=== PATIENT | male | born 1975 | race Caucasian/White ===

== ENCOUNTER 2019-10-24 18:57 | Emergency (ER) | payer OTHER, SELFPAY ==
[2019-10-24] VITALS (17 sets, daily range): BP systolic 134–146; BP diastolic 71–80; PULSE 77–89; RESP 16; TEMP 37.1; O2SAT 94–100; BMI 32.8
--- NOTE | 2019-10-24 19:07 | DI.RAD.S_ITS ---
PROCEDURE: XR KNEE LT 1TO2V INDICATIONS: trauma/pain TECHNIQUE: 2 views of the knee were acquired. COMPARISON: [facility], CR, XR TIBIA FIBULA LT 2V, 10/24/2019, 19:09. FINDINGS: Limited digital on unconventional views. Bones: No fractures or dislocations. No suspicious bony lesions. Soft tissues: No joint effusion. No suspicious soft tissue calcifications. IMPRESSION: Nonstandard views were obtained. No definitive fracture or dislocation. If clinical symptoms persist or clinical suspicion for pathology is high, a repeat examination is suggested for further evaluation when clinically feasible. Dictated by: Evita Matthew M.D. on 10/24/2019 at 20:22 Approved by: Evita Matthew M.D. on 10/24/2019 at 20:24
--- NOTE | 2019-10-24 19:07 | DI.RAD.S_ITS ---
PROCEDURE: XR TIBIA FIBULA RT 2V INDICATIONS: trauma/pain TECHNIQUE: 2 views of the tibia and fibula were acquired. COMPARISON: [facility], CR, XR ANKLE LT 2V, 10/24/2019, 19:09. FINDINGS: Bones: Comminuted butterfly fracture in distal tibia metaphysis with minimal displacement. In addition, there is a distal fibular fracture involving the ankle mortise with minimal displacement. Mild widening of the medial ankle joint space. No suspicious bony lesions. Soft tissues: No suspicious soft tissue calcifications or masses. IMPRESSION: 1. Comminuted distal tibial fracture with minimal displacement. 2. Distal fibular fracture with intra-articular involvement and minimal displacement. Dictated by: Evita Matthew M.D. on 10/24/2019 at 20:24 Approved by: Evita Matthew M.D. on 10/24/2019 at 20:26
--- NOTE | 2019-10-24 19:07 | DI.RAD.S_ITS ---
PROCEDURE: XR FEMUR LT MIN 2V INDICATIONS: trauma/pain TECHNIQUE: 2 views of the femur were acquired. COMPARISON: None. FINDINGS: Bones: No fractures or dislocations. No suspicious bony lesions. Soft tissues: No suspicious soft tissue calcifications or masses. IMPRESSION: No fracture or dislocation. Dictated by: Evita Matthew M.D. on 10/24/2019 at 20:32 Approved by: Evita Matthew M.D. on 10/24/2019 at 20:32
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
--- NOTE | 2019-10-24 19:15 | DI.RAD.S_ITS ---
PROCEDURE: XR ANKLE LT 2V INDICATIONS: pain/trauma TECHNIQUE: 2 views of the ankle were acquired. COMPARISON: None. FINDINGS: Bones: There is a comminuted butterfly fracture distal tibial metadiaphysis, possibly involving the distal tibial fibular syndesmosis. There is minimal displacement. A intra-articular fracture is seen the distal fibula with minimal displacement. Ankle mortise is widened medially. No suspicious bony lesions. Soft tissues: No tibiotalar joint effusion. Achilles tendon appears normal. IMPRESSION: Distal tibial and fibular fractures. There is widening of ankle mortise medially. Dictated by: Evita Matthew M.D. on 10/24/2019 at 20:26 Approved by: Evita Matthew M.D. on 10/24/2019 at 20:28
[2019-10-24 19:24] LABS: Add Manual Diff / Slide Review NO; Basophils Absolute Auto 0 /uL (0-100); Basophils Percent Auto 0.4 % (0-2); Eosinophils Absolute Auto 100 /uL (0-450); Eosinophils Percent Auto 0.9 % (2-4); Hematocrit 40.3 % (41-53); Hemoglobin 14.2 g/dL (13.5-17.5); Lymphocytes Absolute Auto 1400 /uL (1100-4500); Lymphocytes Percent Auto 19.3 % (25-40); Mean Corpuscular HGB Conc 35.4 % (30-36); Mean Corpuscular Hemoglobin 31.8 PG (26-34); Mean Corpuscular Volume 89.7 fL (80-100); Monocytes Absolute Auto 500 /uL (0-900); Neutrophils Absolute Auto 5200 /uL (1500-7000); Neutrophils Percent Auto 72.4 % (50-75); Platelet Count 229 X10^3/uL (150-400); Red Blood Cell Count 4.49 X10^6/uL (4.5-5.9); Red Cell Distribution Width 12.1 % (11.6-14.8); White Blood Cell Count 7.1 X10^3/uL (4.5-11.0)
[2019-10-24 19:38] LABS: Alanine Aminotransferase 47 IU/L (<50); Albumin 4.4 g/dL (3.5-5.0); Albumin Globulin Ratio 1.7 (1.0-2.8); Alkaline Phosphatase 59 U/L (38-126); Aspartate Aminotransferase 36 IU/L (17-59); BUN Creatinine Ratio 18.8 (6-22); Bilirubin Total 0.4 mg/dL (0.2-1.3); Blood Urea Nitrogen 16 mg/dL (9-20); Calcium 8.9 mg/dL (8.4-10.2); Carbon Dioxide 24 mmol/L (22-32); Chloride 103 mmol/L (98-107); Estimated Glomerular Filt Rate > 60.0 mL/min (>60); Globulin 2.6 g/dL (1.7-4.1); Glucose 111 mg/dL (70-100); HEMOLYSIS < 15 (0-50); Potassium 3.4 mmol/L (3.4-5.1); Sodium 137 mmol/L (137-145)
[2019-10-24] MEDS: fentaNYL 100 MCG/2 ML INJ 50 MCG IV (19:41)
[2019-10-24] MEDS: ONDANSETRON 4 MG/2 ML INJ IV (19:42)
--- NOTE | 2019-10-24 19:55 | PC.NURSE ---
Assumed care of pt. report rec'd from ANTONY Azul. Pt resting on stretcher. just returned back from XR. asking for pain medication. Fentanyl 50mcg and zofran given. LLE with obvious deformity, swelling. 2+ bounding pulse palpated. VS WNL. Awaiting acceptance from [facility].
--- NOTE | 2019-10-24 19:59 | DI.RAD.S_ITS ---
PROCEDURE: XR HAND RT 2V INDICATIONS: pain/trauma TECHNIQUE: 2 views of the hand(s) acquired. COMPARISON: None. FINDINGS: Bones: No fractures or dislocations. Carpal bones are normally aligned. No suspicious bony lesions. Soft tissues: No suspicious soft tissue calcifications. There is an IV line in the right hand. IMPRESSION: No fracture or dislocation. Dictated by: Evita Matthew M.D. on 10/24/2019 at 20:31 Approved by: Evita Matthew M.D. on 10/24/2019 at 20:32
[2019-10-24] MEDS: HYDROMORPHONE 1 MG INJ IV ×2 (20:30→21:37)
[2019-10-24 21:39] LABS: COVID19 -Nasal RAPID Negative (Negative)
== END 2019-10-24 22:14 | disposition short-term general hospital (02) ==
PROVIDERS: Emergency Provider Emergency Medicine
DX: S82.202A Unspecified fracture of shaft of left tibia, initial encounter for closed fracture (principal); V29.88XA Motorcycle rider (driver) (passenger) injured in other specified transport accidents, initial encounter
CPT/HCPCS: 29515; 36415; 73120; 73552; 73560; 73590; 73600; 80053; 85025; 87635; 96374; 96375; 96376; 99284; J1170; J2405; J3010